=== PATIENT | male | born 1955 | race Asian ===

== ENCOUNTER 2018-10-07 11:30 | Emergency (ER) | payer MEDICAID ==
[~2018-10-07] VITALS: Ht 160 cm; Wt 72.6 kg
[2018-10-07 11:50] VITALS: BP_SYST 141
--- NOTE | 2018-10-07 11:56 | NUR ---
Patient to ER bed 2 to gown for evaluation. Side rails up. Report given to Emmanuel BRYANT.
--- NOTE | 2018-10-07 12:19 | NUR ---
JOSH Barriga at bedside examining patient.
[2018-10-07] MEDS ORDERED: ACETAMINOPHEN 500 MG TABLET PO ONE (12:30)
--- NOTE | 2018-10-07 12:40 | NUR ---
Medication administered. Pt tolerated well. No adverse reactions noted. Pt assisted to position of comfort. Family at bedside. Will continue to monitor .
--- NOTE | 2018-10-07 13:16 | NUR ---
Note undone in EDM - 10/07/18 at 1317 by [email or web address] Patient given written and verbal discharge instructions and verbalizes understanding. ER MD Barriga discussed with patient the results and treatment provided. Patient in stable condition. ID arm band removed. Rx of Naproxen given. Patient educated on pain management and to follow up with PMD. Pain Scale 0. Opportunity for questions provided and answered. Medication side effect fact sheet provided.
[2018-10-07 13:17] VITALS: BP_SYST 134
== END 2018-10-07 13:15 | disposition home or self-care (01) ==
LOC: SED 11:30
DX: S70.01XA Contusion of right hip, initial encounter (principal); S09.90XA Unspecified injury of head, initial encounter; J45.909 Unspecified asthma, uncomplicated; W01.10XA Fall on same level from slipping, tripping and stumbling with subsequent striking against unspecified object, initial encounter; Y93.89 Activity, other specified; Y92.89 Other specified places as the place of occurrence of the external cause; Y99.8 Other external cause status
CPT/HCPCS: 70450-TC; 73521; 99284